=== PATIENT | male | born 2000 | race Two or more races ===

== ENCOUNTER 2021-01-09 22:59 | Emergency (ER) | payer OTHER ==
[~2021-01-09] VITALS: Ht 170.2 cm; Wt 55.1 kg
[2021-01-10] MEDS ORDERED: PERTUSS(ACELL),DIPH,TET VAC/PF 0.5 ML SYRINGE IM. ONE (02:00)
[2021-01-10] MEDS ORDERED: LIDOCAINE 1% 10 ML VIAL ID ONE (02:00)
[2021-01-10 03:06] VITALS: BP 129/75
[2021-01-10] MEDS ORDERED: IBUPROFEN 600 MG TABLET PO ONE (03:15)
== END 2021-01-10 03:23 | disposition home or self-care (01) ==
LOC: EMS 23:12
DX: S51.811A Laceration without foreign body of right forearm, initial encounter (principal); S80.212A Abrasion, left knee, initial encounter; S80.02XA Contusion of left knee, initial encounter; F12.90 Cannabis use, unspecified, uncomplicated; V00.131A Fall from skateboard, initial encounter; Y93.51 Activity, roller skating (inline) and skateboarding; Y92.89 Other specified places as the place of occurrence of the external cause; Y99.8 Other external cause status
CPT/HCPCS: 12001; 73564; 90471; 90715; 99283; J3490